=== PATIENT | male | born 1985 | race Two or more races ===

== ENCOUNTER 2018-10-27 15:17 | Emergency (ER) | payer OTHER ==
[2018-10-27] MEDS ORDERED: IBUPROFEN 600 MG TAB PO ONE ×2 (16:06→16:07)
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
[2018-10-27 18:19] VITALS: BP 115/78
== END 2018-10-27 18:19 | disposition home or self-care (01) ==
DX: S16.1XXA Strain of muscle, fascia and tendon at neck level, initial encounter (principal); V49.49XA Driver injured in collision with other motor vehicles in traffic accident, initial encounter; Y92.410 Unspecified street and highway as the place of occurrence of the external cause